=== PATIENT | female | born 1955 | race Caucasian/White ===

== ENCOUNTER 2017-05-13 10:58 | Day surgery (SDC) | payer BC ==
[~2017-05-13 10:58] MED LIST: Buffered Lidocaine 0.9% SYRIN* 5 ML/SYR SYRINGE INTRADERM ONE
[2017-05-13] MEDS ORDERED: ceFAZolin 2 GM PREMIX (*) 2 GM/50 ML BAG IVPB ONE (11:14)
[2017-05-13] MEDS ORDERED: Bupivacaine 0.25% SDV* 30 ML ONE ×2 (12:43→13:19)
[2017-05-13] MEDS ORDERED: PROCHLORPERAZINE INJ 5 MG/ML 2 ML VIAL IV PRN (12:50)
[2017-05-13] MEDS ORDERED: Acetaminophen TAB* 325 MG PO PRN (12:50)
[2017-05-13] MEDS ORDERED: Scopolamine 1.5 mg* PATCH TRANSDERM PRN (12:50)
[2017-05-13] MEDS ORDERED: DiMENhydriNATE IV* 50 MG/ML VIAL IV PUSH PRN (12:50)
[2017-05-13] MEDS ORDERED: Ondansetron INJ* 2 MG/ML VIAL IV PRN (12:50)
[2017-05-13] MEDS ORDERED: Midazolam* 1 MG/ML 2 ML VIAL (2 MG) ONE ×3 (13:00→14:07)
[2017-05-13] MEDS ORDERED: fentaNYL* 50 MCG/ML 2 ML VIAL (100 MCG VIAL) ONE (13:00)
[2017-05-13] MEDS ORDERED: Lidocaine 1% INJ* 10 MG/ML 30 ML SDV ONE (13:26)
[2017-05-13] MEDS ORDERED: Betamethasone INJ* 6 MG/ML 5 ML VIAL (30 MG) ONE (13:26)
[2017-05-13] MEDS ORDERED: Lidocaine 2% PF* 10 ML AMP ONE (13:41)
[2017-05-13] MEDS ORDERED: ROPIVACAINE 5 MG/ML 30 ML BTL (0.5%) ONE (13:42)
[2017-05-13] MEDS ORDERED: Famotidine IV* 10 MG/ML 2 ML (20 mg) ONE (13:42)
[2017-05-13] MEDS ORDERED: Scopolamine 1.5 mg* PATCH ONE (13:44)
[2017-05-13] MEDS ORDERED: Propofol* 10 MG/ML 20 ML BTL IV PUSH ONE (15:06)
[2017-05-13] MEDS ORDERED: Dexamethasone IV* 4 MG/ML 1 ML (4 MG) ONE (15:06)
[2017-05-13] MEDS ORDERED: Lidocaine 2% PF * 5 ML VIAL ONE (15:06)
[2017-05-13] MEDS ORDERED: Ondansetron INJ* 2 MG/ML VIAL ONE (15:06)
[2017-05-13] MEDS ORDERED: Ketorolac INJ* 30 MG/ML 1 ML VIAL ONE (15:07)
[2017-05-13 17:17] VITALS: BP 107/55
--- NOTE | 2017-05-14 11:40 | OP ---
DATE OF OPERATION: 05/13/17 [facility] DATE OF : 51 SURGEON: Sai Rothman MD. COUNTER MOLDER: ELVIA Ghotra. ANESTHESIOLOGIST: Dr. Bailey. ANESTHESIA: Supraclavicular block plus MAC. PRE-OP DIAGNOSES: 1. Left stage 3 basal joint arthritis. 2. Symptomatic left distal radius volar plate 3. Left carpal tunnel syndrome. 4. Left metacarpal phalangeal joint hyperextension. 5. Left index trigger finger POST-OP DIAGNOSES: 1. Left stage 3 basal joint arthritis. 2. Symptomatic left distal radius volar plate 3. Left carpal tunnel syndrome. 4. Left metacarpal phalangeal joint hyperextension. 5. Left index trigger finger OPERATIVE PROCEDURE: 1. Left thumb carpometacarpal arthroplasty with trapeziectomy and distally based split flexor carpi radialis tendon transfer for thumb suspension. 2. Left thumb metacarpophalangeal joint volar capsulodesis. 3. Removal of hardware, left distal radius, volar plate and screws. 4. Left open carpal tunnel release. 5. Left index trigger finger steroid injection INDICATIONS: Tavares had an ORIF of her left distal radius fracture. Over a year and half ago, she had a bit of an intra-articular malunion. The plate was standing off the bone distally and was quite prominent. She was in lot of pain related to that. Additionally, she has basal joint arthritis and has a quite bit of pain related to that. She has had her right basal joint operated on previously by Dr. Alecia Barth. The right thumb has done well with that surgery. She is also having symptoms of left carpal tunnel syndrome. I had talked to her about her treatment options. We talked about simply removing the plate and see if that is adequate versus correcting the malunion. We both agreed that we should see if she can get enough relief by simply removing the plate. We also talked about the risks and benefits of the thumb surgery and carpal tunnel release. She elected to proceed with surgery. ESTIMATED BLOOD LOSS: 5 mL. COMPLICATIONS: None. FINDINGS: As expected. DESCRIPTION OF PROCEDURE: Tavares was seen in the preoperative holding area. The correct side, site, and procedure were identified. We came back to the operating room. She had a block performed. The arm was prepped and draped in the usual fashion. Formal time-out was performed. I began by exsanguinating the arm with Esmarch and the tourniquet was inflated to 250 mmHg. I then injected the left index trigger finger at the A1 xiao with 1 ml of 1% plain lidocaine and 6 mg of betamethason. I then made a longitudinal 2 to 3 cm incision in the standard location for an open carpal tunnel release. Dissection was carried down through the subcutaneous tissue and palmar fascia. The transverse carpal ligament was released off the radial aspect of the hook of the hamate. The release was completed distally and then proximally I released the fascia and subcutaneous tissue and retracted this volarly and ulnarly, while released the remainder of the transverse carpal ligament with tenotomy scissors under direct visualization. I also released the distal antebrachial fascia. The release was checked and there was excellent decompression of the nerve so we irrigated out the wound and the skin was closed with 4-0 nylon suture. I then reopened her prior incision for her distal radius fracture. Dissection was carried down to the FCR tendon sheath, which was released. This was retracted ulnarly. The median nerve was sitting just under the FCR tendon. I developed the interval between the FPL and the radial artery and this took me down to the plate. There was no pronator quadratus present. Soft tissue was released off of the plate. I then used the Synthes screwdrivers to remove the Synthes distal radius plate and all of the screws. They came out uneventfully. The rongeur was used to clean up any bony spurs or soft tissue remnants and getting back to nice, clean, healthy appearing surface. I then split my FCR tendon longitudinally with 15 blade. A 25-gauge wire was passed through the longitudinal split. The wire was pulled proximally with a Dona to split the tendon up to the level of the incision. I then made a small 1 to 2 cm transverse incision, about 7 or 8 cm proximal to my other incision, centered over the FCR tendon. Dissection was carried down. The sheath was opened. The sheath was released along its entirety. I then used a Dona clamp to retrieve the 25- gauge wire into the proximal incision to complete the split and release the tendon at the musculotendinous junction. The split was brought down to the distal wound. I then closed the proximal aspect of the distal radius incision and the proximal forearm incision with 4-0 nylon suture and then turned my attention to the thumb base. I made a 2 to 3 cm longitudinal incision from the base of the dorsal thumb metacarpal bone down towards the radial styloid. Dissection was carried down just dorsal to the first dorsal compartment tendons. The radial artery was mobilized and retracted. One small investment advisor branch was tied up with 4-0 silk suture. I then split the capsule and periosteum longitudinally, and subperiosteal and capsular flaps to expose the trapezium. The rongeur was used to excise the trapezium in its entirety. I then made a drill hole from the dorsal radial base of the thumb metacarpal exiting out the volar ulnar aspect of the articular surface. This was done with sequentially larger drill bits. Once I had the drill hole created, I passed my split end of my FCR tendon down into the thumb base wounds by shuttling it with two 25 gauge wires. The split in the tendon was completed with tenotomy scissors all the way down to the base of the second metacarpal. I then used my 25-gauge wire to pull my tendon up through my bone tunnel and then to loop it back around the intact limb of the FCR tendon. Appropriate tension was set and the tendon transfer was secured with three 3-0 Ethibond sutures. The first grabbed all limbs of the tendon transfer with last two [id number] sutures sewed intact limb to intact limb. Once this was done, I balled up the remainder of my tendon and secured the tendon ball with 3-0 Ethibond suture. This was then placed in an interposition between the base of the thumb metacarpal and the distal pole of the scaphoid. I had inspected the scaphotrapezoid joint prior to all of this and it looked healthy. With the tendon transfer performed and the arthroplasty done, I went ahead and closed my capsule with 3-0 Ethibond suture. I then checked my metacarpophalangeal joint hyperextension laxity. Now the repair had been done, she was hyperextending 60 degrees at the MP joint. I made a Heather incision over the thumb metacarpophalangeal joint volar aspect. The ulnar digital nerve and the radial digital nerves were identified and retracted. I released the A1 xiao and retracted the tendon radially. I then placed two imbricating 3-0 Ethibond sutures in the volar plate. This tightened up the volar capsule quite nicely. I checked to see how much MP joint hyperextension I had and it came just to neutral. I therefore irrigated out the wound and the skin for all my remaining wounds was closed with 4-0 nylon suture. All the operative wounds were infiltrated with 0.25% plain Marcaine. The wounds were dressed with Xeroform, 4x4's, sterile Webril, and a thumb spica splint was placed holding the metacarpal bone abducted and the MP joint flexed at 30 degrees of flexion. The tourniquet was deflated. The hand pinked up immediately. She was then awoken up and taken to recovery room in stable condition. [id number]/CPS #: [id number]
[2017-05-16] MEDS ORDERED: Scopolomine PATCH Remove* 1 NOTE MISC PATCH OFF ONE (12:51)
== END 2017-05-13 17:45 | disposition home or self-care (01) ==
LOC: OREAST 10:58
PROVIDERS: ATTEND Orthopaedic Surgery Hand Surgery
DX: M18.12 Unilateral primary osteoarthritis of first carpometacarpal joint, left hand (principal); T84.84XA Pain due to internal orthopedic prosthetic devices, implants and grafts, initial encounter; Y79.2 Prosthetic and other implants, materials and accessory orthopedic devices associated with adverse incidents; G56.02 Carpal tunnel syndrome, left upper limb; M25.842 Other specified joint disorders, left hand; M65.322 Trigger finger, left index finger; Z88.5 Allergy status to narcotic agent; S52.572P Other intraarticular fracture of lower end of left radius, subsequent encounter for closed fracture with malunion; X58.XXXD Exposure to other specified factors, subsequent encounter
CPT/HCPCS: 88300; 88304; 88311; A9270-GY; J0690; J0702; J1100; J1885; J2001; J2250; J2405; J2704; J2795; J3010